=== PATIENT | female | born 1985 ===

== ENCOUNTER 2020-05-04 07:59 | Outpatient (REF) | payer OTHER, SELFPAY ==
[2020-05-11 05:52] LABS: HPV 16 RNA DETECTED (NOT DETECTED); HPV mRNA E6/E7 rflx Detected (Not Detected)
== END 2020-05-04 08:00 | disposition home or self-care (01) ==
LOC: HO.LAB 07:59
PROVIDERS: Visit Provider Advanced Practice Midwife
DX: Z01.419 Encounter for gynecological examination (general) (routine) without abnormal findings (principal); Z11.51 Encounter for screening for human papillomavirus (HPV); R87.610 Atypical squamous cells of undetermined significance on cytologic smear of cervix (ASC-US)
CPT/HCPCS: 36415; 87624; 87625; 88141; 88142

== ENCOUNTER 2020-06-13 10:25 | Outpatient (REF) | payer OTHER, SELFPAY | END 2020-06-13 10:26 | disposition home or self-care (01) | LOC: HO.LAB 10:25 | PROVIDERS: Visit Provider Obstetrics & Gynecology | DX: R87.610 Atypical squamous cells of undetermined significance on cytologic smear of cervix (ASC-US) (principal); R87.810 Cervical high risk human papillomavirus (HPV) DNA test positive | CPT/HCPCS: 57454; 88305 ==

== ENCOUNTER → 2020-06-26 13:46 | Outpatient (BNVA) | payer OTHER, SELFPAY | PROVIDERS: Visit Provider Obstetrics & Gynecology ==

== ENCOUNTER 2021-05-09 08:07 | Outpatient (REF) | payer OTHER, SELFPAY ==
[2021-05-09 15:24] LABS: CT PCR NOT DETECTED (Not Detect.); NG PCR NOT DETECTED (Not Detect.)
[2021-05-15 09:06] LABS: HPV 16 RNA DETECTED (NOT DETECTED); HPV mRNA E6/E7 rflx Detected (Not Detected)
== END 2021-05-09 08:08 | disposition home or self-care (01) ==
LOC: HO.LAB 08:07
PROVIDERS: Visit Provider Advanced Practice Midwife
DX: Z01.419 Encounter for gynecological examination (general) (routine) without abnormal findings (principal); Z11.51 Encounter for screening for human papillomavirus (HPV); Z20.2 Contact with and (suspected) exposure to infections with a predominantly sexual mode of transmission
CPT/HCPCS: 87491; 87591; 87624; 87625; 88142